=== PATIENT | male | born 1965 | race Two or more races ===

== ENCOUNTER 2018-06-03 09:54 | Outpatient (CLI) | payer OTHER | END 2018-06-03 12:28 | disposition home or self-care (01) | LOC: RAD 501 09:54 | DX: M62.462 Contracture of muscle, left lower leg (principal); M62.89 Other specified disorders of muscle; M06.4 Inflammatory polyarthropathy ==

== ENCOUNTER 2019-04-25 07:03 | Outpatient (CLI) | payer OTHER | END 2019-04-25 07:09 | disposition home or self-care (01) | LOC: LAB 07:03 | DX: I10 Essential (primary) hypertension (principal); M54.5 Low back pain; E78.89 Other lipoprotein metabolism disorders; H40.119 Primary open-angle glaucoma, unspecified eye; H54.8 Legal blindness, as defined in USA; M89.8X8 Other specified disorders of bone, other site ==

== ENCOUNTER 2021-10-15 08:00 | Outpatient (CLI) | payer OTHER | END 2021-10-15 08:30 | disposition home or self-care (01) | LOC: PPH VACUNA 08:00 | PROVIDERS: ATTEND Emergency Medicine Pediatric Emergency Medicine | DX: Z23 Encounter for immunization (principal) ==

== ENCOUNTER 2022-04-16 08:16 | Outpatient (CLI) | payer OTHER | END 2022-04-16 08:26 | disposition home or self-care (01) | LOC: PPH VACUNA 08:16 | PROVIDERS: ATTEND Emergency Medicine Pediatric Emergency Medicine | DX: Z23 Encounter for immunization (principal) ==